=== PATIENT | male | born 1965 | race Caucasian/White ===

== ENCOUNTER 2020-04-13 08:52 | Emergency (ER) | payer SELFPAY ==
[~2020-04-13] VITALS: Wt 77.1 kg
[2020-04-13] MEDS ORDERED: NAPROSYN500 MG PO (09:48)
[2020-04-13] MEDS ORDERED: METHOCARBAMOL500 M1 PO (09:48)
[2020-04-13] MEDS ORDERED: MEDROL DOSEPAK4 MG PO (09:48)
== END 2020-04-13 09:08 | disposition home or self-care (01) ==
LOC: ED 08:52
DX: M54.42 Lumbago with sciatica, left side (principal)